=== PATIENT | female | born 1955 | race Caucasian/White ===

== ENCOUNTER 2022-10-24 10:50 | Day surgery (SDC) | payer MEDICARE, SELFPAY ==
[2022-10-21 13:01] LABS: COVID-19 (In-House Test) RNA Presumptive Negative (Negative)
[2022-10-24] VITALS (8 sets, daily range): BP systolic 126–141; BP diastolic 69–86; PULSE 66–75; RESP 12–20; TEMP 36.4; O2SAT 95–100; BMI 28.1
[2022-10-24] MEDS: SODIUM CHLORIDE 0.9% 500 ML 500 ML 20 ML IV (13:16)
[2022-10-24] MEDS: DiphenhydrAMINE INJ 50 MG/ML VIAL 25 MG IV (13:18)
[2022-10-24] MEDS: fentaNYL CIT INJ 50 mCg/ML AMP 2ML (ASD USE ONLY) IV (13:19)
[2022-10-24] MEDS: MIDAZOLAM INJ 1 MG/ML VIAL 2 ML (ASD USE ONLY) 2 MG IV (13:20)
--- NOTE | 2022-10-24 14:09 | SUR.PHASEII ---
1405 Pt more awake and alert. No complaints. Abdomen remains soft. No rectal bleeding seen. Pt ba po fluids.
--- NOTE | 2022-10-24 14:42 | SUR.PHASEII ---
1422 Pt assessment unchanged. Ambulates with steady gait. Able to dress self. Pt and , Jam, given dc instructions. Aware to warp picker, over the counter, Benefiber and Miralax. Both state understanding. Pt meets dc criteria-to home.
== END 2022-10-24 14:22 | disposition home or self-care (01) ==
PROVIDERS: PCP Family Medicine; Referring Provider Specialist; Visit Provider Specialist
PROC: 0DBE8ZX Excision of Large Intestine, Via Natural or Artificial Opening Endoscopic, Diagnostic (ICD-10-PCS; CPT 45380; principal; 2022-10-24 12:00)
DX: K57.31 Diverticulosis of large intestine without perforation or abscess with bleeding (principal); Z01.812 Encounter for preprocedural laboratory examination; K64.8 Other hemorrhoids; Z20.822 Contact with and (suspected) exposure to COVID-19
CPT/HCPCS: 45378; 87635; C9803; J1200; J2250; J3010; J7040; U0002

== ENCOUNTER 2024-09-18 10:15 | Outpatient (RCR) | payer OTHER, SELFPAY ==
--- NOTE | 2024-10-07 00:12 | CTCFLWUP_ITS ---
Patient: SHADIA ASCENCIO : 1955 Page 6 of 7 FOLLOW UP NOTE DATE OF SERVICE: 09/18/2024 NAME: SHADIA ASCENCIO ACCOUNT: [id number] : 1955 AGE: 69 INTERVAL HISTORY: Patient is complaining of a new breast mass in the left breast over her implant. Patient is yet to see the breast surgeon ONCOLOGY HISTORY: DIAGNOSIS: Stage IIa (pT1b, pN1a, M0), ER positive, OK positive, HER2/susie negative Ki-67 10% moderately differentiated invasive ductal carcinoma of the left breast S/p left breast lumpectomy and sentinel lymph node biopsy (01/14/2022) S/p adjuvant radiation therapy to the left breast (04/25/2022 - 06/21/2022) Started on anastrozole and Citracal on 07/05/2022. History of uterine cancer in 2012. Mother had breast cancer. BRCA 1and2 negative. Osteopenia (08/03/2022) REASON FOR TODAY?S VISIT: This is office follow-up visit. Ms. Ascencio is here at [facility]. She is clinically doing well. Denies any new complaints. Denies any cough, chest pain, abdominal pain or leg cramps. Since last visit she had PET/CT scan done on 11/30/2023 which showed a 13 mm hypermetabolic lesion in the left posterior nasopharynx. The right anterior seventh rib lesion is completely resolved. Ms. Ascencio denies any difficulty breathing. Denies any pain in the nose. Denies any nosebleeds. Denies any other complaints. 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 25 years ago: Patient had bilateral silicone breast implants done. October 2020: Patient had some kind of left breast surgery done in [facility]. 10/13/2021: MRI of the breast showed a right upper quadrant [id number] enhancement measuring 12 x 20 mm as well as a left lower outer quadrant circumscribed 5 x 5 x 7 mm density nodule. 11/19/2021: Ms. Ascencio had ultrasound-guided biopsy which showed invasive ductal carcinoma. 12/13/2021: BRCA 1 and 2 12/16/2021: PET/CT scan? 01/14/2022: Ms. Ascencio had a left breast lumpectomy as well as sentinel lymph node biopsy? 02/09/2022: Oncotype DX study? 04/25/2022?06/21/2020: Ms. Ascencio received 5040 cGy radiation in 28 fractions to the left breast in the adjuvant setting. 07/05/2022: Ms. Ascencio is started on anastrozole and Citracal. 08/03/2022: Bone density testing 11/30/2023: PET CT scan done OTHER MEDICAL HISTORY/CONDITIONS: Uterine Cancer - 2012 Left Breast Cancer - 01/14/2022 Depression Left breast lumpectomy with sentinel node biopsy - 01/14/22 Left knee menisectomy - 2021 Laproscopic hysterectomy; BSO - 2012 Removal left breast cyst - 10/2020 ?Clone Other Med Hx? FAMILY HISTORY: Patient?denies?family?cancer?history. ?Clone Family Hx? 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 BOTTLE CAPPER HISTORY: Menarche?-?Age:?12 Menopause:?2013 Hormone?Use:? control medication x 2 yrs; age 16-18 :?0 Live?Births:?0 ?Clone BOTTLE CAPPER Hx? MEDICATIONS: 1. anastrozole - 1 mg 1 tab Daily 2. Citracal Chew - 500 mg-1,000 unit-40 mcg 1 tab one tab po twice a day 3. multivitamin - 1 tab Daily 4. Seroquel - 50 mg Every day before sleep 5. Zoloft - 100 mg 2 tab Daily?Palabra Meds? Medications Last Reconciled by Saritha Antonio MA on 09/18/2024 ALLERGIES: No Known Drug Allergies REVIEW OF SYSTEMS: A complete 14-point review of systems was performed and is negative except as noted in interval history. PHYSICAL EXAMINATION: VITAL SIGNS: Temperature?99, B/P?122/83, Oxygen?Saturation?95% Weight?200?lbs PAIN: 0 - No pain ECOG Performance Status: 0 - Asymptomatic and fully active GENERAL APPEARANCE: Appears well, in no apparent distress, appropriately interactive. HEENT: Normocephalic, no temporal wasting, normal conjunctiva, no scleral icterus, normal hearing, lips without lesions, neck normal range of motion. CARDIOVASCULAR: Not assessed. PULMONARY: Normal respiratory effort, no respiratory distress or use of accessory muscles, speaking in full sentences, no tachypnea. EXTREMITIES: No pedal edema or cyanosis. SKIN: Normal skin appearance. NEUROLOGIC: Alert and oriented x4. PSHYCHIATRIC: Appropriate affect, mood normal, behavior normal, intact thought and speech. Breast examination shows mass over the implant left breast was LABORATORY DATA: I have personally reviewed and interpreted each of the patient?s relevant lab tests, abnormal findings are below: Date 04/01/24 09/26/24 ??WHITE?BLOOD?COUNT?(Thou/mm3) 9.0 6.7 ??RED?BLOOD?COUNT?(Miln/mm3) 4.59 4.30 ??HEMOGLOBIN?(gm/dl) 13.0 12.0 ??HEMATOCRIT?(%) 39.8 36.1 ??PLATELET?COUNT?(Thou/mm3) 333 320 ??NEUTROPHILS?%,?AUTO?(%) 60 67 ??LYMPH?%,?AUTO?(%) 29 24 ??NEUTROPHILS,?AUTO?(Thou/mm3) 5.4 4.5 ??GLUCOSE,RANDOM?(mg/dL) 106 95 ??BLOOD?UREA?NITROGEN?(mg/dL) 11 10 ??CREATININE?(mg/dL) 0.90 0.80 ??SODIUM?(mmol/L) 139 144 ??POTASSIUM?(mmol/L) 4.0 4.5 ??CHLORIDE?(mmol/L) 107 110?H ??CrCl?(CandG)?(ml/min) 73.66 81.75 ??AST/SGOT?(Unit/L) 31 28 ??ALT/SGPT?(Unit/L) 30 33 ??ALKALINE?PHOSPHATASE?(Unit/L) 86 67 ??BILIRUBIN,?TOTAL?(mg/dL) 0.3 0.5 ??PROTEIN?TOTAL?(gm/dl) 7.4 6.9 ??ALBUMIN,?SERUM?(gm/dl) 4.9?H 4.4 ??GLOBULIN?(gm/dl) 2.5 2.5 ??ALBUMIN/GLOBULIN?RATIO 2.0 1.8 ??CALCIUM,?SERUM?(mg/dL) 10.0 9.2 ??CALCIUM?SERUM?(CORRECTED)?(mg/dL) 10.0 9.2 ASSESSMENT/PLAN: 1. Stage IIa (pT1b, pN1a, M0), ER positive, OK positive, HER2/susie negative Ki-67 10% moderately differentiated invasive ductal carcinoma of the left breast. Low Oncotype DX score. S/p left breast lumpectomy and sentinel lymph node biopsy (01/14/2022) S/p adjuvant radiation therapy to the left breast completed on 06/21/2022. Patient is having new left breast mass. Will refer to breast surgeon to evaluate the same. 2. Nasopharyngeal mass --PET/CT scan done on 11/30/2023 showed complete resolution of the right anterior seventh rib lesion. However it showed slightly increased about 30 mm in size hypermetabolic left posterior nasopharyngeal lesion. Oral nasopharyngeal lesion patient was seen by ENT and biopsy was pl anned. Patient says it was canceled secondary to her insurance and patient never received a biopsy. Will refer patient back to ENT for possible biopsy of the mass. 3. Osteopenia bone Density test done on 08/03/2022 showed osteopenia. Continue Prolia 60 mg SQ every 6 months and continue taking Citracal 1 tablet daily 4. History of uterine cancer in 2012. Stable continue to follow with the [facility] 5. Bilateral silicone breast implants 25 years ago-refer to Dr. Lanza for evaluation of the left breast and implant 6. Mother had breast cancer. ORDERS: Order # Description [id number] Breast Ultrasound + Left [id number] Comprehensive Metabolic Panel - 12 + CBC with Auto Diff + MD Follow Up 4 Week + CA 15-3 [id number] Basic Metabolic Panel [id number] Refer To: RETURN TO CLINIC: 4 to 6 weeks with results BILLING AND COMPLIANCE: I reviewed external records from providers outside my specialty as summarized above. I spent a total of 50 minutes on this patient?s care on the day of their visit excluding time spent related to any billed procedures. This time includes time spent with the patient as well as time spent documenting in the medical record, reviewing patients records and tests, obtaining history, placing orders, communicating with other healthcare professionals, counseling the patient, family or caregiver, and/or care coordination for the diagnoses above. Electronically Signed by: Don Fernandes MD T: 12:10 AM CC: Brenden?Cassidy?Alexis,? PCP: Brenden Santos Referring: Brenden Santos This document was completed utilizing speech recognition software. Grammatical errors, random word insertions, pronoun errors, and incomplete sentences are an occasional consequence of this system due to software limitations, ambient noise, and hardware issues. Any formal questions or concerns about the content, text or information contained within the body of this dictation should be directly addressed to the provider for clarification.
== END 2024-09-30 23:59 | disposition home or self-care (01) ==
LOC: SCTC 10:15
PROVIDERS: PCP Family Medicine; Referring Provider Family Medicine; Visit Provider Internal Medicine Hematology & Oncology
DX: N63.20 Unspecified lump in the left breast, unspecified quadrant (principal); C50.512 Malignant neoplasm of lower-outer quadrant of left female breast; Z17.0 Estrogen receptor positive status [ER+]; Z17.21 Progesterone receptor positive status; Z17.32 Human epidermal growth factor receptor 2 negative status; M85.89 Other specified disorders of bone density and structure, multiple sites; Z85.42 Personal history of malignant neoplasm of other parts of uterus; Z90.12 Acquired absence of left breast and nipple; Z80.3 Family history of malignant neoplasm of breast
CPT/HCPCS: 99212; G0463

== ENCOUNTER → 2024-09-26 | Outpatient (CLI) | payer OTHER, SELFPAY ==
[2024-09-26 11:44] LABS: Basophils # (Auto) 0.1 Thou/mm3 (0.0-0.2); Basophils % (Auto) 1 % (0-2.5); Eosinophils # (Auto) 0.2 Thou/mm3 (0.0-0.5); Eosinophils % (Auto) 3 % (0-10); Hematocrit 36.1 % (36.0-46.0); Immature Granulocytes % (Auto) 0 % (0-0); Immature Granulocytes Auto 0.01 Thou/mm3 (0.00-0.00); Lymphocytes # (Auto) 1.6 Thou/mm3 (1.0-4.8); Lymphocytes % (Auto) 24 % (10-50); Mean Corpuscular HGB Conc 33.2 g/dl (31.0-37.0); Mean Corpuscular Hemoglobin 27.9 pg (25.0-35.0); Mean Corpuscular Volume 84 fL (80-100); Monocytes # (Auto) 0.4 Thou/mm3 (0.0-0.8); Monocytes % (Auto) 6 % (0-12); Neutrophils # (Auto) 4.5 Thou/mm3 (1.8-7.7); Neutrophils % (Auto) 67 % (37-80); Nucleated Red Blood Cell % 0 /100 WBC (0); Platelet Count 320 Thou/mm3 (140-440); RDW Standard Deviation 46.5 fL (36.4-46.3); White Blood Count 6.7 Thou/mm3 (3.6-11.0)
[2024-09-26 11:47] LABS: Glucose Estimated Average 100 mg/dL (80-131); Hemoglobin A1C 5.1 % Hgb (4.8-6.0)
[2024-09-26 11:52] LABS: Alanine Aminotransferase 33 U/L (10-49); Albumin, Serum 4.4 gm/dL (3.4-4.8); Albumin/Globulin Ratio 1.8 (1.2-2.2); Alkaline Phosphatase 67 U/L (46-116); Anion Gap 10 (7-16); Aspartate Amino Transferase 28 U/L (0-34); BUN/Creatinine Ratio 13 Ratio (12-20); Bilirubin,Total 0.5 mg/dL (0.3-1.2); Blood Urea Nitrogen 10 mg/dL (9-23); Calcium 9.2 mg/dL (8.3-10.6); Calcium (Corrected) 9.2 mg/dL (8.5-10.1); Carbon Dioxide 23.9 mMol/L (20.0-31.0); Cardiac Risk Estimate 3.3 RATIO (3.7-5.6); Chloride 110 mMol/L (98-107); Cholesterol 183 mg/dL (132-200); Creatinine (Component) 0.8 mg/dL (0.6-1.3); Globulin 2.5 gm/dL (2.3-3.5); Glucose 95 mg/dL (74-106); HDL Cholesterol 55 mg/dL (40-60); LDL Cholesterol,Calculated 96 mg/dL (0-130); Osmolality,Calculated 285 (275-295); Potassium 4.5 mMol/L (3.4-5.1); Sodium 144 mMol/L (136-145); Thyroid Stimulating Hormone 0.79 uIU/mL (0.55-4.78); Total Protein 6.9 gm/dL (5.7-8.2); Triglycerides 160 mg/dL (30-150); eGFR > 60 See Note
[2024-09-26 12:09] LABS: CA 15-3 18.8 U/mL (<32.4)
== END | disposition home or self-care (01) ==
LOC: SCTO 10:23
PROVIDERS: PCP Internal Medicine; Referring Provider Internal Medicine; Visit Provider Internal Medicine
DX: C50.512 Malignant neoplasm of lower-outer quadrant of left female breast (principal); J34.89 Other specified disorders of nose and nasal sinuses; F33.2 Major depressive disorder, recurrent severe without psychotic features; Z79.899 Other long term (current) drug therapy
CPT/HCPCS: 36415; 80053; 80061; 83036; 84443; 85025; 86300

== ENCOUNTER 2024-10-03 14:02 | Outpatient (RCR) | payer OTHER, SELFPAY | END 2024-10-30 23:59 | disposition home or self-care (01) | LOC: SCTC 14:02 | PROVIDERS: PCP Internal Medicine; Referring Provider Internal Medicine; Visit Provider Internal Medicine Hematology & Oncology | DX: M85.89 Other specified disorders of bone density and structure, multiple sites (principal); C50.512 Malignant neoplasm of lower-outer quadrant of left female breast; Z17.0 Estrogen receptor positive status [ER+]; Z17.21 Progesterone receptor positive status; Z17.32 Human epidermal growth factor receptor 2 negative status; Z90.12 Acquired absence of left breast and nipple; J34.89 Other specified disorders of nose and nasal sinuses; Z85.42 Personal history of malignant neoplasm of other parts of uterus; Z80.3 Family history of malignant neoplasm of breast | CPT/HCPCS: 96372; J0897 ==

== ENCOUNTER → 2024-10-29 | Outpatient (CLI) | payer OTHER, SELFPAY ==
[2024-10-29 10:08] LABS: Misc Send Out* See Sep Rpt
== END | disposition home or self-care (01) ==
PROVIDERS: PCP Family Medicine; Referring Provider Internal Medicine Hematology & Oncology; Visit Provider Internal Medicine Hematology & Oncology
DX: C50.512 Malignant neoplasm of lower-outer quadrant of left female breast (principal); J34.89 Other specified disorders of nose and nasal sinuses

== ENCOUNTER → 2024-12-23 | Outpatient (CLI) | payer OTHER, SELFPAY ==
--- NOTE | 2024-12-23 14:00 | XR_ITS ---
Examination: Retroperitoneal ultrasound, complete Technique: Multiple high resolution grayscale images of the retroperitoneum obtained, including kidneys and bladder. Exam date and time:December 23, 2024 1403 hours INDICATIONS: Urinary tract infections beginning July 2024 FINDINGS: Right kidney 11.0 cm cortex 1.5 cm Left kidney 9.8 cm cortex 2.1 cm Mild bilateral renal parenchymal scar formation No bladder mass or bladder calculi, bladder prevoid volume 401 cc IMPRESSION: Mild bilateral renal parenchymal scar formation
== END | disposition home or self-care (01) ==
PROVIDERS: PCP Student in an Organized Health Care Education/Training Program; Referring Provider Internal Medicine; Visit Provider Student in an Organized Health Care Education/Training Program
DX: N28.89 Other specified disorders of kidney and ureter (principal)
CPT/HCPCS: 76770

== ENCOUNTER → 2025-02-20 | Outpatient (CLI) | payer OTHER, SELFPAY | END | disposition home or self-care (01) | LOC: SLDO 14:49 | PROVIDERS: PCP Family Medicine; Referring Provider Nurse Practitioner Family; Visit Provider Nurse Practitioner Family | DX: N30.00 Acute cystitis without hematuria (principal) | CPT/HCPCS: 87086 ==

== ENCOUNTER → 2025-02-27 | Outpatient (CLI) | payer OTHER, SELFPAY | END | disposition home or self-care (01) | LOC: SLDO 15:17 | PROVIDERS: PCP Physician Assistant; Referring Provider Physician Assistant; Visit Provider Physician Assistant | DX: N39.0 Urinary tract infection, site not specified (principal) | CPT/HCPCS: 87086 ==

== ENCOUNTER → 2025-04-18 | Outpatient (CLI) | payer OTHER, SELFPAY ==
[2025-04-18 13:14] LABS: Basophils # (Auto) 0.1 Thou/mm3 (0.0-0.2); Basophils % (Auto) 1 % (0-2.5); Eosinophils # (Auto) 0.1 Thou/mm3 (0.0-0.5); Eosinophils % (Auto) 2 % (0-10); Hematocrit 40.6 % (36.0-46.0); Hemoglobin 13.0 g/dL (12.0-16.0); Immature Granulocytes Auto 0.03 Thou/mm3 (0.00-0.00); Lymphocytes # (Auto) 2.2 Thou/mm3 (1.0-4.8); Lymphocytes % (Auto) 27 % (10-50); Mean Corpuscular HGB Conc 32.0 g/dl (31.0-37.0); Mean Corpuscular Hemoglobin 27.4 pg (25.0-35.0); Mean Corpuscular Volume 86 fL (80-100); Monocytes # (Auto) 0.6 Thou/mm3 (0.0-0.8); Monocytes % (Auto) 7 % (0-12); Neutrophils # (Auto) 5.3 Thou/mm3 (1.8-7.7); Neutrophils % (Auto) 63 % (37-80); Nucleated Red Blood Cell # 0.00 Thou/mm3 (0.00-0.00); Nucleated Red Blood Cell % 0 /100 WBC (0); Platelet Count 350 Thou/mm3 (140-440); RDW Standard Deviation 45.7 fL (36.4-46.3); Red Blood Count 4.74 Miln/mm3 (4.00-5.20); White Blood Count 8.4 Thou/mm3 (3.6-11.0)
[2025-04-18 13:26] LABS: Alanine Aminotransferase 32 U/L (10-49); Albumin, Serum 4.9 gm/dL (3.4-4.8); Albumin/Globulin Ratio 1.8 (1.2-2.2); Alkaline Phosphatase 86 U/L (46-116); Anion Gap 10 (7-16); Aspartate Amino Transferase 29 U/L (0-34); BUN/Creatinine Ratio 14 Ratio (12-20); Bilirubin,Total 0.2 mg/dL (0.3-1.2); Blood Urea Nitrogen 14 mg/dL (9-23); Calcium 10.2 mg/dL (8.3-10.6); Calcium (Corrected) 10.2 mg/dL (8.5-10.1); Carbon Dioxide 26.2 mMol/L (20.0-31.0); Chloride 108 mMol/L (98-107); Creatinine (Component) 1.0 mg/dL (0.6-1.3); Globulin 2.7 gm/dL (2.3-3.5); Glucose 94 mg/dL (74-106); Osmolality,Calculated 287 (275-295); Potassium 4.4 mMol/L (3.4-5.1); Sodium 144 mMol/L (136-145); Total Protein 7.6 gm/dL (5.7-8.2); eGFR > 60 See Note
[2025-04-18 13:43] LABS: CA 15-3 18.6 U/mL (<32.4)
== END | disposition home or self-care (01) ==
LOC: COPL 12:28 → SCTO 12:31
PROVIDERS: PCP Family Medicine; Referring Provider Internal Medicine Hematology & Oncology; Visit Provider Internal Medicine Hematology & Oncology
DX: C50.512 Malignant neoplasm of lower-outer quadrant of left female breast (principal); J34.89 Other specified disorders of nose and nasal sinuses
CPT/HCPCS: 36415; 80053; 85025; 86300

== ENCOUNTER 2025-04-24 13:58 | Outpatient (RCR) | payer OTHER, SELFPAY | END 2025-05-02 23:59 | disposition home or self-care (01) | LOC: SCTC 13:58 | PROVIDERS: PCP Family Medicine; Referring Provider Family Medicine; Visit Provider Nurse Practitioner Family | DX: Z08 Encounter for follow-up examination after completed treatment for malignant neoplasm (principal); Z85.3 Personal history of malignant neoplasm of breast; Z90.12 Acquired absence of left breast and nipple; Z92.3 Personal history of irradiation; M85.89 Other specified disorders of bone density and structure, multiple sites; E83.52 Hypercalcemia; Z85.42 Personal history of malignant neoplasm of other parts of uterus | CPT/HCPCS: 96367; 96372; 99212; J0897; G0463 ==

== ENCOUNTER → 2025-06-05 | Outpatient (BNVA) | payer OTHER, SELFPAY | END | disposition home or self-care (01) | PROVIDERS: PCP Family Medicine; Referring Provider Family Medicine; Visit Provider Urology | DX: N39.0 Urinary tract infection, site not specified (principal); Z85.3 Personal history of malignant neoplasm of breast; Z85.42 Personal history of malignant neoplasm of other parts of uterus; Z92.3 Personal history of irradiation; F17.210 Nicotine dependence, cigarettes, uncomplicated; Z71.6 Tobacco abuse counseling | CPT/HCPCS: 81003; 99213; G0463 ==